=== PATIENT | male | born 2000 | race Caucasian/White ===

== ENCOUNTER 2020-10-23 22:48 | Emergency (ER) | payer OTHER ==
[~2020-10-23] VITALS: Ht 175.3 cm; Wt 63.0 kg
[2020-10-23 23:01] VITALS: BP 139/77; Ht 175.3 cm; Wt 63.0 kg
== END 2020-10-23 23:35 | disposition home or self-care (01) ==
LOC: ED 22:48
DX: Z53.21 Procedure and treatment not carried out due to patient leaving prior to being seen by health care provider (principal)

== ENCOUNTER 2020-10-24 17:53 | Emergency (ER) | payer OTHER | END 2020-10-24 20:04 | disposition home or self-care (01) | LOC: ED 17:53 | DX: Z53.21 Procedure and treatment not carried out due to patient leaving prior to being seen by health care provider (principal) ==

== ENCOUNTER 2020-10-25 15:35 | Emergency (ER) | payer OTHER, SELFPAY ==
[~2020-10-25] VITALS: Ht 177.8 cm; Wt 63.5 kg
[2020-10-25 15:37] VITALS: Ht 177.8 cm; Wt 63.5 kg
[2020-10-25 17:00] VITALS: BP 147/68
== END 2020-10-25 17:00 | disposition home or self-care (01) ==
LOC: ED 15:35
DX: B34.9 Viral infection, unspecified (principal); Z20.828 Contact with and (suspected) exposure to other viral communicable diseases
CPT/HCPCS: U0003